=== PATIENT | female | born 1995 | race Caucasian/White ===

== ENCOUNTER → 2024-10-20 16:54 | Outpatient (REF) | payer OTHER, SELFPAY | LOC: RAD 16:54 | PROVIDERS: ATTENDING PHYSICIAN Student in an Organized Health Care Education/Training Program; FAMILY PHYSICIAN Internal Medicine | DX: O26.859 Spotting complicating pregnancy, unspecified trimester (principal) | CPT/HCPCS: 76801 ==

== ENCOUNTER → 2024-11-19 15:12 | Outpatient (REF) | payer OTHER, SELFPAY | LOC: RAD 15:12 | PROVIDERS: ATTENDING PHYSICIAN Obstetrics & Gynecology | DX: O26.851 Spotting complicating pregnancy, first trimester (principal) | CPT/HCPCS: 76801 ==

== ENCOUNTER 2025-05-09 09:14 | Inpatient (IN) | payer OTHER, SELFPAY ==
[2025-05-09 09:24] VITALS: BP 140/84; BMI 28.3
[2025-05-09 10:12] LABS: Hematocrit 37.0 % (37.0-47.0); Hemoglobin 13.0 g/dL (12.0-16.0); Mean Corp Hgb Conc. 35.1 g/dL (33.0-37.0); Mean Corpuscular Volume 89.8 fL (81.0-99.0); Nucleated Red Blood Cells % 0 %; Platelet Count 146 10^3/uL (130-400); Red Cell Dist. Width 12.9 % (11.5-14.5)
[2025-05-09] MEDS: ANCEF 10 IV (10:18)
[2025-05-09] MEDS: LR 1000 IV (10:18)
[2025-05-09 10:25] LABS: ALT (SGPT) 19 U/L (0-35); AST (SGOT) 39 U/L (14-36); Albumin 3.8 g/dl (3.5-5.0); Alkaline Phosphatase 224 U/L (38-126); Blood Urea Nitrogen 8 mg/dl (7-17); Calcium 8.8 mg/dl (8.4-10.2); Carbon Dioxide 19 mmol/L (22-30); Chloride 107 mmol/L (98-107); Estimated Creatinine Clearance > 125 ml/min; Glucose 78 mg/dl (70-99); Potassium 3.5 mmol/L (3.5-5.1); Sodium 134 mmol/L (135-145); Total Protein 6.8 g/dl (6.3-8.2); eGFR > 60.00
[2025-05-09] MEDS: PITOCIN 30 UNITS/NSS 500 ML IV ×2 (11:45→12:16)
[2025-05-09] MEDS: TYLENOL 650 MG PO ×2 (17:02→21:49)
[2025-05-09] MEDS: MOTRIN 600 MG PO (17:02)
[2025-05-09] MEDS: COLACE 100 MG PO (19:50)
[2025-05-09] MEDS: LEXAPRO 5 MG PO (21:49)
[2025-05-10] MEDS: MOTRIN 600 MG PO ×4 (03:50→21:25)
[2025-05-10] MEDS: PRENATAL PLUS PO (03:50)
[2025-05-10] MEDS: TYLENOL 650 MG PO (03:50)
[2025-05-10 04:16] LABS: Hematocrit 33.2 % (37.0-47.0); Hemoglobin 11.7 g/dL (12.0-16.0)
[2025-05-10] MEDS: COLACE 100 MG PO ×2 (10:20→21:20)
[2025-05-10] MEDS: LEXAPRO 5 MG PO (21:20)
[2025-05-10] MEDS: PRENATAL PLUS 1 TABLET PO (21:20)
[2025-05-11] MEDS: MOTRIN 600 MG PO ×3 (04:50→17:23)
[2025-05-11] MEDS: COLACE 100 MG PO (07:56)
[2025-05-11] MEDS: TYLENOL 650 MG PO (17:23)
[2025-05-12 13:39] LABS: Syphilis/T. pallidum Ab Reflex Negative (Negative)
== END 2025-05-11 17:36 | disposition home or self-care (01) | DRG 805 ==
LOC: LDRP 09:14
PROVIDERS: ADMITTING PHYSICIAN Obstetrics & Gynecology
PROC: 0HQ9XZZ Repair Perineum Skin, External Approach (ICD-10-PCS; 2025-05-09)
PROC: 10E0XZZ Delivery of Products of Conception, External Approach (ICD-10-PCS; 2025-05-09)
DX: O42.013 Preterm premature rupture of membranes, onset of labor within 24 hours of rupture, third trimester (principal); O60.14X0 Preterm labor third trimester with preterm delivery third trimester, not applicable or unspecified; Z37.0 Single live birth; Z3A.35 35 weeks gestation of pregnancy; O70.0 First degree perineal laceration during delivery; O99.344 Other mental disorders complicating childbirth; F41.9 Anxiety disorder, unspecified; O43.193 Other malformation of placenta, third trimester; Z88.0 Allergy status to penicillin
CPT/HCPCS: 80053; 85014; 85018; 85025; 86780; 86850; 86900; 86901; 87086; 87491; 87591; 88307